=== PATIENT | male | born 2005 | race Caucasian/White ===

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

== ENCOUNTER 2024-02-02 05:08 | Emergency (ER) | payer OTHER, SELFPAY ==
[2024-02-02 05:13] VITALS: BP 119/73; PULSE 96; TEMP 36.8; O2SAT 99; BMI 18.2
--- OUTSIDE RECORDS SUMMARY | 2024-02-02 05:15 | XMS_ITS | CCD ---
Author Organization [facility] Care Team Providers Care Paper Supervisor Name Role Phone ALFREDO ., DR ALEXANDER Primary Care Unavailable ANNI ., BLUE Admitting Unavailable ANNI ., BLUE Attending Unavailable FAIZA, DR ESAU Smith Consulting Unavailable ANNI ., BLUE Consulting Unavailable HOY ., DR ALEXANDER Admitting Unavailable HOY ., DR ALEXANDER Attending Unavailable HOY ., DR ALEXANDER Primary Care Unavailable HOY ., DR ALEXANDER Consulting Unavailable HOY ., DR ALEXANDER Primary Care Unavailable PAY ., DR NICHOLSON Consulting Unavailable PAY ., DR NICHOLSON Admitting Unavailable PAY ., DR NICHOLSON Attending Unavailable Problems Problem Classification Problem Date Documented Da te Episodic/Chronic Fluid and electrolyte disorders (1 source) Dehydration; Translations: [DEHYDRATION] Onset: 10-29-2022 Episodic Nausea and vomiting (4 sources) Nausea with vomiting, unspecified; Translations: [NAUSEA WITH VOMITING UNSPECIFIED] Onset: 10-27-2022 Episodic Other gastrointestinal disorders (1 source) Diarrhea, unspecified; Translations: [DIARRHEA UNSPECIFIED] Onset: 10-29-2022 Episodic Other upper respiratory disease (1 source) Nasal congestion; Translations: [NASAL CONGESTION] Onset: 12-14-2022 Episodic Other upper respiratory infections (8 sources) Acute pharyngitis, unspecified; Translations: [Acute upper respiratory infection, unspecified] Onset: 05-11-2022 Episodic Substance-related disorders (1 source) Cannabis abuse, uncomplicated; Translations: [CANNABIS ABUSE UNCOMPLICATED] Onset: 10-29-2022 Chronic Unclassified (1 source) CONTACT W/AND (SUSP) EXPOS COVID-19; Translations: [CONTACT W/AND (SUSP) EXPOS COVID-19] Onset: 05-15-2022 Results Test Name Value Interpretation Reference Range Facil ity GROUP A STREP CULTUREon 11-28 S. pyogenes Ag Ql (Unsp spec) Culture Observations: NEGATIVE FOR GROUP A STREPTOCOCCUS. Normal [facility] Comment on above: Performed By: #### S RICKIE GRASTCX #### [facility] [address] [place] [address] Dr. Trae Hensley STREPT SCREENon 12-09-2022 STREP SCREEN A Negative Normal NEGATIVE [facility] Comment on above: Performed By: #### S RICKIE GRASTCX #### [facility] [address] [place] [address] Dr. Trae Hensley CBC W MANUAL DIFFon 10-27-19 23 ATYPICAL LYMPH # Normal [facility] Comment on above: Performed By: #### C BCMAN #### [facility] [address] [place] [address] Dr. Trae Hensley ATYPICAL LYMPH % Normal [facility] Comment on above: Performed By: #### C BCMAN #### [facility] [address] [place] [address] Dr. Trae Hensley BAND # 0.6 103/ul Critically high 0.0-0.3 [facility] Comment on above: Performed By: #### C BCMAN #### [facility] [address] [place] [address] Dr. Trae Hensley BAND % 3 % Normal 0-[address] [facility] Comment on above: Performed By: #### C BCMAN #### [facility] [address] [place] [address] Dr. Trae Hensley BASOM # 0.00 103/ul Normal 0.00-0.[address] [facility] Comment on above: Performed By: #### C BCMAN #### [facility] [address] [place] [address] Dr. Trae Hensley BASOM % 0.0 % Critically low 0.2-2.0 [facility] Comment on above: Performed By: #### C BCMAN #### [facility] [address] [place] [address] Dr. Trae Hensley BLAST # Normal [facility] Comment on above: Performed By: #### C BCMAN #### [facility] [address] [address] [address] Trae Hensley BLAST % Normal [facility] Comment on above: Performed By: #### C BCELIZABETH #### [facility] [address] [address] [address] Trae Hensley CORRECTED WBC Normal 4.0-11.0 [facility] Comment on above: Performed By: #### C BCMAN #### [facility] [address] [address] [address] Trae Hensley EOS # 0.00 103/ul Normal 0.00-0.[address] [facility] Comment on above: Performed By: #### C BCMAN #### [facility] [address] [address] [address] Trae Hensley EOS% 0.0 % Critically low 0.9-7.0 [facility] Comment on above: Performed By: #### C BCELIZABETH #### [facility] [address] [place] [address] Dr. Trae Hensley HCT 45.6 % Normal 42.0-54.[address] [facility] Comment on above: Performed By: #### C BCELIZABETH #### [facility] [address] [place] [address] Dr. Trae Hensley HGB 16.4 g/dl Normal 14.0-18.[address] [facility] Comment on above: Performed By: #### C BCELIZABETH #### [facility] [address] [place] [address] Dr. Trae Hensley LYMPHM # 0.58 103/ul Critically low 1.20-3.80 [facility] Comment on above: Performed By: #### C BCMAN #### [facility] [address] [place] [address] Dr. Trae Hensley LYMPHM% 3.0 % Critically low 20.5-60.0 [facility] Comment on above: Performed By: #### C BCMAN #### [facility] [address] [place] [address] Dr. Trae Hensley MCH 31.7 pg Normal 25.9-34.[address] [facility] Comment on above: Performed By: #### C RANDY #### [facility] [address] [place] [address] Dr. Trae Hensley MCHC 36.0 g/dl Critically high 29.9-35.2 [facility] Comment on above: Performed By: #### C RANDY #### [facility] [address] [place] [address] Dr. Trae Hensley MCV 88.0 fL Normal 76.3-90.1 [facility] Comment on above: Performed By: #### C RANDY #### [facility] [address] [place] [address] Dr. Trae Hensley METAMYELOCYTE # Normal [facility] Comment on above: Performed By: #### C RANDY #### [facility] [address] [place] [address] Dr. Trae Hensley METAMYELOCYTE % Normal [facility] Comment on above: Performed By: #### Angeles PADILLA #### [facility] [address] [place] [address] Dr. Trae Hensley MONOM# 0.78 103/ul Normal 0.30-0.[address] [facility] Comment on above: Performed By: #### Angeles PADILLA #### [facility] [address] [place] [address] Dr. Trae Hensley MONOM% 4.0 % Normal 1.7-12.[address] [facility] Comment on above: Performed By: #### Angeles PADILLA #### [facility] [address] [place] [address] Dr. Trae Hensley MPV 9.3 fL Critically low 9.5-13.5 [facility] Comment on above: Performed By: #### Angeles PADILLA #### [facility] [address] [place] [address] Dr. Trae Hensley MYELOCYTE # Normal [facility] Comment on above: Performed By: #### Angeles PADILLA #### [facility] [address] [place] [address] Dr. Trae Hensley MYELOCYTE % Normal [facility] Comment on above: Performed By: #### C RANDY #### [facility] [address] [address] [address] Trae Hensley NRBC Normal [facility] Comment on above: Performed By: #### C RANDY #### [facility] [address] [address] [address] Trae Hensley PLT 296 103/ul Normal 150-450 [facility] Comment on above: Performed By: #### C RANDY #### [facility] [address] [address] [address] Trae Hensley RBC 5.18 106/ul Normal 3.30-5.[address] [facility] Comment on above: Performed By: #### C RANDY #### [facility] [address] [place] [address] Dr. Trae Hensley RDW 12.2 % Normal 11.0-15.[address] [facility] Comment on above: Performed By: #### Angeles PADILLA #### [facility] [address] [place] [address] Dr. Trae Hensley SEG # 17.46 103/ul Critically high 1.40-6.50 [facility] Comment on above: Performed By: #### Angeles PADILLA #### [facility] [address] [place] [address] Dr. Trae Hensley SEG % 90.0 % Critically high 43.0-75.0 [facility] Comment on above: Performed By: #### Angeles PADILLA #### [facility] [address] [place] [address] Dr. Trae Hensley WBC 19.4 103/ul Critically high 4.0-11.0 [facility] Comment on above: Performed By: #### C RANDY #### [facility] [address] [place] [address] Dr. Trae Hensley DRUG SCREEN RAPID (URINE)on 10-27-2022 AMP Negative Normal NEGATIVE [facility] Comment on above: Performed By: #### D RUGRPD #### [facility] [address] [place] [address] Dr. Trae Hensley BAR Negative Normal NEGATIVE [facility] Comment on above: Performed By: #### D RUGRPD #### [facility] [address] [place] [address] Dr. Trae Hensley BUP Negative Normal NEGATIVE [facility] Comment on above: Performed By: #### D RUGRPD #### [facility] [address] [place] [address] Dr. Trae Hensley BZO Negative Normal NEGATIVE [facility] Comment on above: Performed By: #### D RUGRPD #### [facility] [address] [place] [address] Dr. Trae Hensley DAVE Negative Normal NEGATIVE [facility] Comment on above: Performed By: #### D RUGRPD #### [facility] [address] [place] [address] Dr. Trae Hensley CUT-OFFS SEE BELOW Normal [facility] Comment on above: Result Comment: AMP (Amphetamine): 500ng/mL, BAR (Barbituates): 200 ng/mL, BZO (Benzodiazepines): 150 ng/mL, BUP (Buprenorphine): 10 ng/mL, DAVE (Cocaine): 150 ng/mL, mAMP (Methamphetamine): 500 ng/mL, MTD (Methadone): 200 ng/mL, OPI (Opiates): 100 ng/mL, OXY (Oxycodone): 100 ng/mL, PCP (Phencyclidine): 25 ng/mL, PPX (Propoxyphene): 300 ng/mL, THC (Cannabinoids): 50 ng/mL, TCA (Trycyclic Antidepressants): 300 ng/mL Performed By: #### D RUGRPD #### [facility] [address] [place] [address] Dr. Trae Hensley DRUG CUT HEADER DRUG CLASS TEST SYSTEM CUT-OFF CONCENTRATIONS ARE FOLLOWS: Normal [facility] Comment on above: Performed By: #### D RUGRPD #### [facility] [address] [place] [address] Dr. Trae Hensley mAMP Negative Normal NEGATIVE [facility] Comment on above: Performed By: #### D RUGRPD #### [facility] [address] [place] [address] Dr. Trae Hensley MTD Negative Normal NEGATIVE [facility] Comment on above: Performed By: #### D RUGRPD #### [facility] [address] [address] [address] Trae Hensley OPI Negative Normal NEGATIVE [facility] Comment on above: Performed By: #### D RUGRPD #### [facility] [address] [place] [address] Dr. Trae Hensley OXY Negative Normal NEGATIVE [facility] Comment on above: Performed By: #### D RUGRPD #### [facility] [address] [place] [address] Dr. Trae Hensley PCP Negative Normal NEGATIVE [facility] Comment on above: Performed By: #### D RUGRPD #### [facility] [address] [place] [address] Dr. Trae Hensley PPX Negative Normal NEGATIVE [facility] Comment on above: Performed By: #### D RUGRPD #### [facility] [address] [place] [address] Dr. Trae Hensley TCA Negative Normal NEGATIVE [facility] Comment on above: Performed By: #### D RUGRPD #### [facility] [address] [place] [address] Dr. Trae Hensley THC Positive Abnormal NEGATIVE [facility] Comment on above: Performed By: #### D RUGRPD #### [facility] [address] [place] [address] Dr. Trae Hensley ER URINE PROFILEon 3 Bilirubin Ql (U) SMALL Abnormal NEGATIVE [facility] Comment on above: Performed By: #### U MICRO, ERUR #### [facility] [address] [place] [address] Dr. Trae Hensley Clarity (U) CLEAR Normal CLEAR [facility] Comment on above: Performed By: #### U MICRO, ERUR #### [facility] [address] [place] [address] Dr. Trae Hensley Color (U) DK. YELLOW Normal YELLOW [facility] Comment on above: Performed By: #### U MICRO, ERUR #### [facility] [address] [address] [address] Trae YEUNG A micrscopic examination will be performed if indicated. Normal [facility] Comment on above: Performed By: #### U MICRO, ERUR #### [facility] [address] [place] [address] Dr. Trae Hensley Glucose Ql (U) Negative Normal NEGATIVE [facility] Comment on above: Performed By: #### U MICRO, ERUR #### [facility] [address] [address] [address] Trae Hensley Hemoglobin Ql (U) Negative Normal NEGATIVE [facility] Comment on above: Performed By: #### U MICRO, ERUR #### [facility] [address] [place] [address] Dr. Trae Hensley Ketones Ql (U) 15 mg/dl Abnormal NEGATIVE [facility] Comment on above: Performed By: #### U MICRO, ERUR #### [facility] [address] [place] [address] Dr. Trae Hensley LEUKOCYTES Negative Normal NEGATIVE [facility] Comment on above: Performed By: #### U MICRO, ERUR #### [facility] [address] [address] [address] Trae Hensley Nitrite Ql (U) Negative Normal NEGATIVE [facility] Comment on above: Performed By: #### U MICRO, ERUR #### [facility] [address] [place] [address] Dr. Trae Hensley pH (U) 5.5 [pH] Normal 5-9 [facility] Comment on above: Performed By: #### U MICRO, ERUR #### [facility] [address] [place] [address] Dr. Trae Hensley Protein (U) [Mass/Vol] 100 mg/dL Abnormal NEGATIVE/ TRACE [facility] Comment on above: Performed By: #### U MICRO, ERUR #### [facility] [address] [place] [address] Dr. Trae Hensley SPEC GRAVITY >=1.030 Abnormal 1.005-<=1.025 [facility] Comment on above: Performed By: #### U MICRO, ERUR #### [facility] [address] [place] [address] Dr. Trae Hensley UR MICRO IND INDICATED Normal [facility] Comment on above: Performed By: #### U MICRO, ERUR #### [facility] [address] [place] [address] Dr. Trae Hensley Urobilinogen Qn (U) 1.0 {Jony'U}/dL Normal 0.2 - 1. [address] [facility] Comment on above: Performed By: #### U MICRO, ERUR #### [facility] [address] [place] [address] Dr. Trae Hensley PROF 14(COMP METB)on 023 Albumin [Mass/Vol] 5.1 g/dL Critically high 3.4-5.0 [facility] Comment on above: Performed By: #### C MP #### [facility] [address] [place] [address] Dr. Trae Hensley Albumin/Globulin [Mass ratio] 1.5 {ratio} Normal [facility] Comment on above: Performed By: #### C MP #### [facility] [address] [place] [address] Dr. Trae Hensley ALP [Catalytic activity/Vol] 101 U/L Normal 65-[address] [facility] Comment on above: Performed By: #### C MP #### [facility] [address] [place] [address] Dr. Trae Hensley ALT [Catalytic activity/Vol] 29 U/L Normal 16-[address] [facility] Comment on above: Performed By: #### C MP #### [facility] [address] [place] [address] Dr. Trae Hensley Anion gap [Moles/Vol] 13.2 mmol/L Normal [facility] Comment on above: Performed By: #### C MP #### [facility] [address] [place] [address] Dr. Trae Hensley AST [Catalytic activity/Vol] 27 U/L Normal 15-[address] [facility] Comment on above: Performed By: #### C MP #### [facility] [address] [address] [address] Trae Hensley Bilirubin [Mass/Vol] 0.7 mg/dL Normal 0.2-1.[address] [facility] Comment on above: Performed By: #### C MP #### [facility] [address] [address] [address] Trae Hensley Calcium [Mass/Vol] 9.7 mg/dL Normal 8.5-10.1 [facility] Comment on above: Performed By: #### C MP #### [facility] [address] [address] [address] Trae Hensley Chloride [Moles/Vol] 100 mmol/L Normal 98-[address] [facility] Comment on above: Performed By: #### C MP #### [facility] [address] [address] [address] Trae Hensley CO2 [Moles/Vol] 28.0 mmol/L Normal 21.0-32.0 [facility] Comment on above: Performed By: #### C MP #### [facility] [address] [address] [address] Trae Hensley Creatinine [Mass/Vol] 0.82 mg/dL Normal 0.70-1.[address] [facility] Comment on above: Performed By: #### C MP #### [facility] [address] [address] [address] Trae Hensley Globulin (S) [Mass/Vol] 3.4 g/dL Normal [facility] Comment on above: Performed By: #### C MP #### [facility] [address] [address] [address] Trae Hensley Glucose [Mass/Vol] 127 mg/dL Critically high 74-106 [facility] Comment on above: Performed By: #### C MP #### [facility] [address] [address] [address] Trae Hensley Potassium [Moles/Vol] 4.2 mmol/L Normal 3.5-5.[address] [facility] Comment on above: Performed By: #### C MP #### [facility] [address] [address] [address] Trae Hensley Protein [Mass/Vol] 8.5 g/dL Critically high 6.4-8.2 [facility] Comment on above: Performed By: #### C MP #### [facility] [address] [address] [address] Trae Hensley Sodium [Moles/Vol] 137 mmol/L Normal 136-145 [facility] Comment on above: Performed By: #### C MP #### [facility] [address] [address] [address] Trae Hensley Urea nitrogen [Mass/Vol] 19.0 mg/dL Normal 6.4-19.[address] [facility] Comment on above: Performed By: #### C MP #### [facility] [address] [place] [address] Dr. Trae Hensley Urea nitrogen/Creatinine [Mass ratio] 23.2 mg/mg Normal [facility] Comment on above: Performed By: #### C MP #### [facility] [address] [address] [address] Trae Hensley URINE MICROSCOPIC ONLYon AMORPHOUS CRYSTALS MANY Normal [facility] Comment on above: Performed By: #### U MICRO, ERUR #### [facility] [address] [place] [address] Dr. Trae Hensley BACTERIA NONE SEEN Normal NONE SEEN [facility] Comment on above: Performed By: #### U MICRO, ERUR #### [facility] [address] [address] [address] Trae Hensley Bacteria identified Cx Nom (U) NOT INDICATED Normal [facility] Comment on above: Performed By: #### U MICRO, ERUR #### [facility] [address] [place] [address] Dr. Trae Hensley CAST NONE SEEN Normal NONE SEEN [facility] Comment on above: Performed By: #### U MICRO, ERUR #### [facility] [address] [address] [address] Trae Hensley Crystals LM Nom (Urine sed) SEEN Abnormal NONE SEEN [facility] Comment on above: Performed By: #### U MICRO, ERUR #### [facility] [address] [address] [address] Trae Hensley Epithelial cells LM Ql (Urine sed) FEW Abnormal NONE SEEN /RARE [facility] Comment on above: Performed By: #### U MICRO, ERUR #### [facility] [address] [address] [address] Trae Hensley MUCOUS NONE SEEN Normal NONE SEEN [facility] Comment on above: Performed By: #### U MICRO, ERUR #### [facility] [address] [address] [address] Trae Hensley RBC NONE SEEN Abnormal 0-2 [facility] Comment on above: Performed By: #### U MICRO, ERUR #### [facility] [address] [place] [address] Dr. Trae Hensley WBC NONE SEEN Normal NONE SEEN [facility] Comment on above: Performed By: #### U MICRO, ERUR #### [facility] [address] [place] [address] Dr. Trae Hensley XR ABD FLAT UP_PA Delvis 10-27 XR ABD FLAT UP_PA CH EXAMINATION: XR ABD FLAT UP_PA CH HISTORY: NAUSEA WITH VOMITING, UNSPECIFIED COMPARISON: No relevant comparison available. FINDINGS: LUNGS: No infiltrate, pneumothorax, or pleural effusion. MEDIASTINUM: No abnormal widening. BOWEL GAS PATTERN: Non-obstructed. FREE AIR: None. CALCIFICATIONS: None significant. BONES: No fracture or visible bone lesion. OTHER: Negative. IMPRESSION: Clear lungs Nonobstructive bowel gas pattern Electronically authenticated by: ESAU KENDALL Date: 2022-10-27 14:34 Normal [facility] Covid-19 PCR ([facility])on 04-30 SARS-CoV-2 (COVID-19) RNA STEVE+probe Ql (Unsp spec) Not detected Normal NOT DETECTED [facility] Comment on above: Result Comment: When diagnostic testing is negative, the possibility of a false negative should be considered in the context of a patient's recent exposures and the presence of clinical signs and symptoms consistent with SARS-CoV-2. This test is not yet approved or cleared by the [place] FDA. When there are no FDA-approved or cleared tests available, and other criteria are met, FDA can make tests available under an emergency access mechanism called an Emergency Use Authorization (EUA). The EUA for this test is supported by the [employer] of Health and Human Service's declaration that circumstances exist to justify the emergency use of in vitro diagnostics for the detection and/or diagnosis of the virus that causes COVID-19. This EUA will remain in effect for the duration of the COVID-19 declaration justifying emergency of IVDs, unless it is terminated or revoked by the FDA (after which the test may no longer be used). Performed By: #### C [facility] #### [facility] [address] [place] [address] Dr. Trae Hensley Encounters Encounter Date Encounter Type Care Provider Facility Start: 12-09-2022 End: 12-09-[address] BENJAMIN FUENTES . Facility: Start: 10-27-2022 End: 10-27-[address] BENJAMIN FUENTES . Facility: Start: 05-11-2022 End: 05-11-[address] BENJAMIN FUENTES . Facility:[facility] Payers Date Payer Category Payer Unknown [id number] [id number] [id number] 1982 Unknown [id number] [id number] [id number] 1982 Unknown [id number] [id number] [id number] 1960 Unknown [id number] Summary Purpose Family History No Family History Records Found Advance Directives No Advanced Directives Records Found Additional Source Comments (unrecognized sect ion and content) No Status Records Found INFORMATION SOURCE (unrecogn ized section and content) DATE CREATED AUTHOR 12/14/2022 [facility] FOR RECORDS PERTAINING TO PATIENTS WHO ARE OR HAVE BEEN ENROLLED IN A CHEMICAL DEPENDENCY/SUBSTANCEABUSE PROGRAM, SOME INFORMATION MAY BE OMITTED. This clinical summary was aggregated from multiple sources. Caution should be exercised in using it in the provision of clinical care. This summary normalizes information from multiple sources, and as a consequence, information in this document may materially change the coding, format and clinical context of patient data. In addition, data may be omitted in some cases. CLINICAL DECISIONS SHOULD BE BASED ON THE PRIMARY CLINICAL RECORDS. [employer] [facility]. provides no warranty or guarantee of the accuracy or completeness of information in this document.
--- NOTE | 2024-02-02 05:36 | ED_ITS ---
HPI - Nausea/Vomiting/Diarrhea General Chief complaint: Nausea/Vomiting/Diarrhea Stated complaint: VOMITING Time Seen by Provider: 02/02/24 05:10 Source: patient Mode of arrival: walk-in Limitations: no limitations History of Present Illness HPI Narrative: 18-year-old presents to the emergency department for nausea and vomiting. Started within the last 2 days. No hematemesis or diarrhea or fever. The patient states that this has happened in the past and according to EHR of the last visit for this issue was in September. No dysuria or hematuria. Related Data Home Medications ?Medication ?Instructions ?Recorded ?Confirmed estradiol 1 mg tablet 1 mg PO DAILY 06/11/23 02/02/24 spironolactone 100 mg tablet 100 mg PO Q12H 06/11/23 02/02/24 Previous Rx's ?Medication ?Instructions ?Recorded hyoscyamine sulfate 0.125 mg 0.125 mg PO Q6H PRN abdominal pain 10/13/23 tablet (Levsin) #12 tabs promethazine 25 mg tablet 25 mg PO Q6H PRN nausea and 10/13/23 vomiting #12 tabs ondansetron 4 mg disintegrating 4 mg PO Q6H PRN nausea and 02/02/24 tablet vomiting #20 tabs Allergies Allergy/AdvReac Type Severity Reaction Status Date / Time No Known Drug Allergies Allergy Verified 02/02/24 05:19 Review of Systems ROS Narrative A ten point review of systems is negative except as noted above. [facility] Social History Smoking status: Never smoker Exam Narrative Exam Narrative: Nurses note and vital signs reviewed and patient is not hypoxic. General: The patient appears in no respiratory distress. Emesis bucket present. Skin: Warm, dry, no pallor noted. There is no rash noted. Head: Normocephalic, atraumatic Eye: Normal conjunctiva, no drainage Ears, Nose, Mouth, and Throat: oral mucosa is moist. Nares patent. Cardiovascular: Regular Rate and Rhythm Respiratory: Patient is in no distress, no accessory muscle use, lungs are clear to auscultation, no wheezing, rales or rhonchi Back: non-tender GI: Soft and nondistended Musculoskeletal: The patient has no evidence of calf tenderness, no pitting edema, symmetrical pulses noted bilaterally Neurological: A&O, normal speech Psychiatric: Cooperative Constitutional Vital Signs, click to edit/add: Last Vital Signs Temp 98.3 F 02/02/24 05:13 Pulse 96 H 02/02/24 05:13 Resp 16 02/02/24 05:13 BP 119/73 02/02/24 05:13 Pulse Ox 99 02/02/24 05:13 O2 Del Method Room Air 02/02/24 05:13 Course Vital Signs Vital signs: Vital Signs Temperature 98.3 F 02/02/24 05:13 Pulse Rate 96 H 02/02/24 05:13 Respiratory Rate 16 02/02/24 05:13 Blood Pressure 119/73 02/02/24 05:13 Pulse Oximetry 99 02/02/24 05:13 Oxygen Delivery Method Room Air 02/02/24 05:13 Temperature 98.3 F 02/02/24 05:13 Pulse Rate 96 H 02/02/24 05:13 Respiratory Rate 16 02/02/24 05:13 Blood Pressure 119/73 02/02/24 05:13 Pulse Oximetry 99 02/02/24 05:13 Oxygen Delivery Method Room Air 02/02/24 05:13 MDM - Nausea/Vomiting/Diarrhea MDM Narrative Medical decision making narrative: Blood work is essentially normal. The patient is tolerating ice chips after being given IV fluids and Zofran and is able to be discharged home on Zofran. Treatment diagnosis and follow-up were discussed with the patient. Differential Diagnosis Differential diagnosis: Likely food poisoning, gastroenteritis and dehydration Lab Data Attestation: I reviewed the patient's lab results. Labs: Lab Results 02/02/24 Range/Units 05:20 WBC 7.5 (4.0-11.0) 10^3/uL RBC 5.03 (4.70-6.10) 10^6/uL Hgb 15.6 (14.0-18.0) g/dL Hct 44.6 (42.0-54.0) % MCV 88.7 (80.0-94.0) fL MCH 31.0 (25.9-34.0) pg MCHC 35.0 (29.9-35.2) g/dL RDW 11.9 (11.0-15.0) % Plt Count 292 (150-450) 10^3/uL MPV 9.6 (9.5-13.5) fL Neut % (Auto) 65.8 (43.0-75.0) % Lymph % (Auto) 20.6 (20.5-60.0) % [place] % (Auto) 11.3 (1.7-12.0) % Eos % (Auto) 1.6 (0.9-7.0) % Baso % (Auto) 0.4 (0.2-2.0) % Neut # (Auto) 5.0 (1.4-6.5) 10^3/uL Lymph # (Auto) 1.6 (1.2-3.8) 10^3/uL [place] # (Auto) 0.9 H (0.3-0.8) 10^3/uL Eos # (Auto) 0.1 (0.0-0.7) 10^3/uL Baso # (Auto) 0.0 (0.0-0.1) 10^3/uL Abs Immat Gran (auto) 0.02 (0.00-0.03) 10^3/uL Imm/Tot Granulo (auto) 0.3 (0.0-0.5) % Sodium 140 (136-145) mmol/L Potassium 3.4 L (3.5-5.1) mmol/L Chloride 101 (98-107) mmol/L Carbon Dioxide 27.6 (21.0-32.0) mmol/L Anion Gap 14.8 BUN 11.0 (6.4-19.3) mg/dL Creatinine 0.88 (0.70-1.30) mg/dL Est GFR ( Amer) >60 (>=60) Est GFR (Non-Af Amer) >60 (>=60) BUN/Creatinine Ratio 12.5 Glucose 103 (74-106) mg/dL Calcium 9.7 (8.5-10.1) mg/dL Discharge Plan Discharge Stand Alone Forms: Portal Instructions Chief Complaint: Nausea/Vomiting/Diarrhea Clinical Impression: Nausea and vomiting Patient Disposition: Home, Self-Care Time of Disposition Decision: 06:36 Condition: Good Mode of Transportation: Private Vehicle Prescriptions / Home Meds: New ondansetron 4 mg tablet,disintegrating 4 mg PO Q6H PRN (Reason: nausea and vomiting) Qty: 20 0RF No Action spironolactone 100 mg tablet 100 mg PO Q12H estradiol 1 mg tablet 1 mg PO DAILY hyoscyamine sulfate [Levsin] 0.125 mg tablet 0.125 mg PO Q6H PRN (Reason: abdominal pain) Qty: 12 0RF promethazine 25 mg tablet 25 mg PO Q6H PRN (Reason: nausea and vomiting) Qty: 12 0RF Print Language: Greek Instructions: Acute Nausea and Vomiting (ED) Referrals: Mehdi Vergara MD [Primary Care Provider] - 1 week
[2024-02-02 06:04] LABS: Basophils Percent Auto 0.4 % (0.2-2.0); Eosinophils Absolute Auto 0.1 10^3/uL (0.0-0.7); Eosinophils Percent Auto 1.6 % (0.9-7.0); Hematocrit 44.6 % (42.0-54.0); Hemoglobin 15.6 g/dL (14.0-18.0); Immature Granulocytes Abs Auto 0.02 10^3/uL (0.00-0.03); Immature Granulocytes Pct Auto 0.3 % (0.0-0.5); Lymphocytes Absolute Auto 1.6 10^3/uL (1.2-3.8); Lymphocytes Percent Auto 20.6 % (20.5-60.0); Mean Corpuscular Volume 88.7 fL (80.0-94.0); Mean Platelet Volume 9.6 fL (9.5-13.5); Monocytes Absolute Auto 0.9 10^3/uL (0.3-0.8); Monocytes Percent Auto 11.3 % (1.7-12.0); Neutrophils Percent Auto 65.8 % (43.0-75.0); Platelet Count 292 10^3/uL (150-450); Red Blood Count 5.03 10^6/uL (4.70-6.10); Red Cell Distribution Width 11.9 % (11.0-15.0); White Blood Count 7.5 10^3/uL (4.0-11.0)
[2024-02-02] MEDS: ONDANSETRON PF 4 MG/2 ML VIAL IV ×2 (06:07→07:04)
[2024-02-02] MEDS: 0.9 % SODIUM CHLORIDE 1,000 ML 1000 ML IV (06:07)
[2024-02-02 06:14] LABS: Anion Gap 14.8; BUN Creatinine Ratio 12.5; Calcium 9.7 mg/dL (8.5-10.1); Carbon Dioxide 27.6 mmol/L (21.0-32.0); Chloride 101 mmol/L (98-107); Estimated GFR (African America >60 (>=60); Estimated GFR (Non-African Ame >60 (>=60); Glucose 103 mg/dL (74-106); Potassium 3.4 mmol/L (3.5-5.1); Sodium 140 mmol/L (136-145)
[2024-02-02] MEDS: FAMOTIDINE/PF 20 MG/2 ML VIAL IV (07:35)
[2024-02-02 07:44] VITALS: BP 112/78; PULSE 64; O2SAT 99
== END 2024-02-02 07:46 | disposition home or self-care (01) ==
PROVIDERS: Emergency Provider Emergency Medicine; PCP Family Medicine
DX: R11.2 Nausea with vomiting, unspecified (principal)
CPT/HCPCS: 36415; 80048; 85025; 96361; 96374; 96375; 96376; 99284

== ENCOUNTER 2024-07-31 09:55 | Emergency (ER) | payer OTHER, SELFPAY ==
[2024-07-31 09:59] VITALS: BP 112/61; PULSE 65; TEMP 36.8; O2SAT 96; BMI 18.2
--- NOTE | 2024-07-31 10:02 | XR_ITS ---
The [address] [address] Patient Name: KEVEN LICONA MRN: [id number] date: 2005 Sex: M Assigned Patient Location: ED.MAIN Current Patient Location: ER Accession/Order Number: [id number] Exam Date: 07/31/2024 10:05 Report Date: 07/31/2024 10:27 At the request of: JAYA CASTELLANOS Procedure: XR chest 1V EXAMINATION: XR chest 1V HISTORY: left sided back pain COMPARISON: XR chest 06/11/2023 FINDINGS: LUNGS: No significant pulmonary parenchymal abnormalities. VASCULATURE: No increased pulmonary vasculature. PLEURA: No pneumothorax, effusion, or pleural thickening. CARDIAC: No cardiomegaly or cardiac silhouette abnormality. MEDIASTINUM: No visible mass or adenopathy. BONES: No fracture or visible bone lesion. OTHER: Negative. XR/XR chest 1V IMPRESSION: 1. No acute cardiac pulmonary process. Stable chest. Electronically authenticated by: KORI RAMIREZ Date: 07/31/2024 10:27
--- NOTE | 2024-07-31 10:03 | ED.GENADUL1 ---
HPI HPI - General Adult General Chief complaint: Back Pain/Injury Stated complaint: back pain Time Seen by Provider: 07/31/24 10:00 History of Present Illness HPI narrative: 18-year-old male presents to the emergency department for pain in the left thoracic back area. He was at work and was doing some twisting and turning and felt a pain just below and medial to the left shoulder blade. This happened 25 or 30 minutes ago and the pain is moderate to severe. Related Data Home Medications ?Medication ?Instructions ?Recorded ?Confirmed estradiol 1 mg tablet 1 mg PO DAILY 06/11/23 02/02/24 spironolactone 100 mg tablet 100 mg PO Q12H 06/11/23 02/02/24 Previous Rx's ?Medication ?Instructions ?Recorded hyoscyamine sulfate 0.125 mg 0.125 mg PO Q6H PRN abdominal pain 10/13/23 tablet (Levsin) #12 tabs promethazine 25 mg tablet 25 mg PO Q6H PRN nausea and 10/13/23 vomiting #12 tabs famotidine 20 mg tablet (Pepcid) 20 mg PO BID #10 tabs 02/02/24 ondansetron 4 mg disintegrating 4 mg PO Q6H PRN nausea and 02/02/24 tablet vomiting #20 tabs pantoprazole 40 mg tablet,delayed 40 mg PO DAILY #30 tabs 02/02/24 release (Protonix) ibuprofen 800 mg tablet 800 mg PO Q8H PRN pain #20 tabs 07/31/24 methocarbamol 750 mg tablet 750 mg PO Q8H #20 tabs 07/31/24 Allergies Allergy/AdvReac Type Severity Reaction Status Date / Time No Known Drug Allergies Allergy Verified 07/31/24 09:59 Opioid HPI Opioid Management Most Recent Opioid Data: Last Pain Scale 7 07/31/24 10:17 07/31/24 Last MAR Pain Assessment 07/31/24 10:17 Review of Systems ROS Narrative A ten point review of systems is negative except as noted above. PFSH PFSH Social History Smoking status: Never smoker Little interest or pleasure in doing things: not at all Feeling down, depressed, or hopeless: not at all Exam Narrative Exam Narrative: Nurses note and vital signs reviewed and patient is not hypoxic. General: The patient appears uncomfortable Skin: Warm, dry, no pallor noted. There is no rash noted. Head: Normocephalic, atraumatic Eye: Normal conjunctiva, no drainage Ears, Nose, Mouth, and Throat: oral mucosa is moist. Nares patent. Cardiovascular: Regular Rate and Rhythm Respiratory: The patient has difficulty taking a deep breath. Breath sounds seem to be equal. There is no crepitus on the back area Back: non-tender GI: Soft and nontender Musculoskeletal: The patient has no evidence of calf tenderness, no pitting edema, symmetrical pulses noted bilaterally Neurological: A&O, normal speech Psychiatric: Cooperative Constitutional Vital Signs, click to edit/add: Last Vital Signs Temp 98.2 F 07/31/24 09:59 Pulse 65 07/31/24 09:59 Resp 20 07/31/24 09:59 BP 112/61 07/31/24 09:59 Pulse Ox 97 07/31/24 10:11 O2 Del Method Room Air 07/31/24 10:11 Course Vital Signs Vital signs: Vital Signs Temperature 98.2 F 07/31/24 09:59 Pulse Rate 65 07/31/24 09:59 Respiratory Rate 20 07/31/24 09:59 Blood Pressure 112/61 07/31/24 09:59 Pulse Oximetry 96 07/31/24 09:59 Oxygen Delivery Method Room Air 07/31/24 09:59 Temperature 98.2 F 07/31/24 09:59 Pulse Rate 65 07/31/24 09:59 Respiratory Rate 20 07/31/24 09:59 Blood Pressure 112/61 07/31/24 09:59 Pulse Oximetry 97 07/31/24 10:11 Oxygen Delivery Method Room Air 07/31/24 10:11 Medical Decision Making MDM Narrative Medical decision making narrative: X-ray shows no evidence of pneumothorax or other acute abnormality. The patient is feeling improved with IM Toradol and Norflex and will be discharged home on ibuprofen and methocarbamol. Treatment diagnosis and follow-up were discussed with the patient Differential Diagnosis Differential Diagnosis: Pneumothorax, muscle strain Imaging Data Chest x-ray: Radiologist's impression: ITS Impressions Chest X-Ray 07/31/24 10:02 IMPRESSION: 1. No acute cardiac pulmonary process. Stable chest. Electronically authenticated by: KORI RAMIREZ Date: 07/31/2024 10:27 Discharge Plan Discharge Chief Complaint: Back Pain/Injury Clinical Impression: Strain of muscle at thorax level Patient Disposition: Home, Self-Care Time of Disposition Decision: 10:56 Condition: Good Mode of Transportation: Private Vehicle Prescriptions / Home Meds: New ibuprofen 800 mg tablet 800 mg PO Q8H PRN (Reason: pain) Qty: 20 0RF methocarbamol 750 mg tablet 750 mg PO Q8H Qty: 20 0RF No Action spironolactone 100 mg tablet 100 mg PO Q12H estradiol 1 mg tablet 1 mg PO DAILY hyoscyamine sulfate [Levsin] 0.125 mg tablet 0.125 mg PO Q6H PRN (Reason: abdominal pain) Qty: 12 0RF promethazine 25 mg tablet 25 mg PO Q6H PRN (Reason: nausea and vomiting) Qty: 12 0RF ondansetron 4 mg tablet,disintegrating 4 mg PO Q6H PRN (Reason: nausea and vomiting) Qty: 20 0RF famotidine [Pepcid] 20 mg tablet 20 mg PO BID Qty: 10 0RF pantoprazole [Protonix] 40 mg tablet,delayed release (DR/EC) 40 mg PO DAILY Qty: 30 0RF Print Language: B[place] Instructions: Muscle Strain (ED) Referrals: Mehdi Vergara MD [Primary Care Provider] - 1 week
[2024-07-31 10:11] VITALS: O2SAT 97
[2024-07-31] MEDS: KETOROLAC TROMETHAMINE 60 MG/2 ML VIAL IM (10:17)
[2024-07-31] MEDS: ORPHENADRINE 60 MG/ 2 ML VIAL IM (10:28)
== END 2024-07-31 11:00 | disposition home or self-care (01) ==
PROVIDERS: Emergency Provider Emergency Medicine; PCP Family Medicine
DX: S29.012A Strain of muscle and tendon of back wall of thorax, initial encounter (principal); X50.1XXA Overexertion from prolonged static or awkward postures, initial encounter
CPT/HCPCS: 71045; 96372; 99284; J1885; J2360